=== PATIENT | female | born 1975 | race Caucasian/White ===

== ENCOUNTER 2020-02-21 15:08 | Emergency (ER) | payer OTHER ==
[~2020-02-21] VITALS: Ht 152.4 cm; Wt 56.7 kg
[~2020-02-21 15:08] MED LIST: CELEXA 10 MG TA10 M1 PO; HYDROCORTISONE3011 TOP; MEDROLDOSEPACK PO; PREDNISONE 10 M10 MG PO
[2020-02-21 15:10] VITALS: BP 143/83
[2020-02-21] MEDS ORDERED: PREDNISONE 10 M10 M1 PO (16:06)
== END 2020-02-21 15:10 | disposition home or self-care (01) ==
LOC: ER 15:08
DX: L95.8 Other vasculitis limited to the skin (principal); F17.210 Nicotine dependence, cigarettes, uncomplicated; Z79.899 Other long term (current) drug therapy; Z88.5 Allergy status to narcotic agent